=== PATIENT | male | born 1980 | race Caucasian/White ===

== ENCOUNTER 2019-01-04 19:32 | Emergency (ER) | payer MEDICAID ==
[~2019-01-04] VITALS: Ht 185.4 cm; Wt 99.8 kg
== END 2019-01-04 20:19 | disposition home or self-care (01) ==
LOC: ER 19:32
DX: Z11.3 Encounter for screening for infections with a predominantly sexual mode of transmission (principal); R03.0 Elevated blood-pressure reading, without diagnosis of hypertension; Z88.0 Allergy status to penicillin; F17.200 Nicotine dependence, unspecified, uncomplicated
CPT/HCPCS: 96372; 99282-25; A9270-GY; J0696